=== PATIENT | male | born 1985 | race Caucasian/White ===

== ENCOUNTER 2020-10-01 16:18 | Emergency (ER) | payer MEDICAID, OTHER ==
[~2020-10-01] VITALS: Ht 177.8 cm; Wt 73.3 kg
[2020-10-01] MEDS ORDERED: AMOX500C PO (16:26)
[2020-10-01 17:09] LABS: BASO % 0.4 % (0.0-1.0); EOS # 0.2 10^3/uL (0.0-0.5); EOS % 2.4 % (0.0-3.0); HEMATOCRIT 46.6 % (42.0-52.0); HEMOGLOBIN 16.4 g/dl (13.5-17.5); LYMPH # 2.7 10^3/uL (1.5-5.0); MEAN CORPUSCULAR HEMOGLOBIN 30.1 pg (27.0-33.0); MEAN CORPUSCULAR HGB CONC 35.2 g/dl (32.0-36.5); MEAN CORPUSCULAR VOLUME 85.5 fl (80.0-96.0); MONO # 0.6 10^3/uL (0.0-0.8); MONO % 7.2 % (2.0-8.0); NEUTROPHILS # 4.4 10^3/uL (1.5-8.5); NEUTROPHILS % 55.7 % (36.0-66.0); PLATELET COUNT, AUTOMATED 228 10^3/uL (150-450); RED BLOOD COUNT 5.45 10^6/uL (4.30-6.10); WHITE BLOOD COUNT 7.9 10^3/uL (4.0-10.0)
[2020-10-01 17:21] LABS: INR 0.96
[2020-10-01 17:41] LABS: ALBUMIN 4.1 GM/DL (3.2-5.2); BILIRUBIN,DIRECT 0.2 MG/DL (0.0-0.2); BILIRUBIN,TOTAL 0.7 MG/DL (0.2-1.0); TOTAL PROTEIN 7.2 GM/DL (6.4-8.2)
[2020-10-01 18:46] VITALS: BP 159/95
== END 2020-10-01 18:50 | disposition home or self-care (01) ==
LOC: M ED 16:18
DX: K92.2 Gastrointestinal hemorrhage, unspecified (principal); K92.1 Melena

== ENCOUNTER → 2021-04-29 | Outpatient (REF) | payer OTHER ==
[~2021-04-29] MED LIST: AMOX500C PO
[2021-05-01 19:07] LABS: Lyme Disease IgG/IgM Antibodie <0.91 ISR (0.00-0.90); Lyme Disease IgM Ab Quantitati <0.80 index (0.00-0.79)
== END ==
LOC: M LAB REF 19:32
PROVIDERS: ATTEND Physician Assistant Medical
DX: R53.83 Other fatigue (principal); R50.9 Fever, unspecified

== ENCOUNTER 2021-11-08 03:31 | Emergency (ER) | payer OTHER, SELFPAY ==
[~2021-11-08] VITALS: Ht 177.8 cm; Wt 75.9 kg
[2021-11-08 03:32] VITALS: BP 159/87
== END 2021-11-08 05:59 | disposition left against medical advice (07) ==
LOC: M ED 03:31
DX: Z53.21 Procedure and treatment not carried out due to patient leaving prior to being seen by health care provider (principal)

== ENCOUNTER 2023-01-08 04:55 | Emergency (ER) | payer OTHER ==
[~2023-01-08] VITALS: Ht 177.8 cm; Wt 71.1 kg
[~2023-01-08 04:55] MED LIST changes: +DIFI200T PO; +VANC125C3 PO
[2023-01-08] MEDS ORDERED: diphenhydrAMINE 25MG CAP PO ONE (07:15)
[2023-01-08] MEDS ORDERED: TRAZ-252 PO (09:22)
[2023-01-08] MEDS ORDERED: traZODone 50 MG TAB PO ONE (09:25)
[2023-01-08 09:29] VITALS: BP 129/73; TEMP 98.6; O2SAT 97
== END 2023-01-08 09:41 | disposition home or self-care (01) ==
LOC: M ED 04:55
DX: F51.01 Primary insomnia (principal); F41.9 Anxiety disorder, unspecified; F32.A Depression, unspecified; Z79.899 Other long term (current) drug therapy